=== PATIENT | male | born 1995 | race Caucasian/White ===

== ENCOUNTER 2017-06-19 11:48 | Emergency (ER) | payer OTHER, MEDICAID ==
[~2017-06-19] VITALS: Ht 185.4 cm; Wt 84.0 kg
[2017-06-19 11:55] VITALS: BP 132/78; PULSE 71; RESP 18; TEMP 98.8; O2SAT 99
[2017-06-19 11:59] VITALS: BP 125/87; PULSE 77; RESP 18; TEMP 98.8; O2SAT 97
[2017-06-19] MEDS ORDERED: SODIUM CHLORIDE 0.9% FLUSH 10 ML FLUSH IVF PRN (12:15)
[2017-06-19 12:27] VITALS: RESP 18; O2SAT 97; O2SAT 99
[2017-06-19] MEDS ORDERED: IOHEXOL 350 MG/ML 10 ML VIAL (for RAD DIAG) IVCONTRAST ONE (13:01)
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
[2017-06-19] MEDS ORDERED: KETOROLAC TROMETHAMINE 30 MG/ML (IVP) VIAL IV PUSH ONE (13:30)
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
[2017-06-19 13:47] LABS: BILIRUBIN, URINE NEG (NEG); BLOOD, URINE NEG (NEG); GLUCOSE,URINE NEG (NEG); KETONE, URINE NEG (NEG); NITRITE,URINE NEG (NEG); PH, URINE 8.5 (5.0-8.5); SQUAMOUS EPITHELIAL CELL URINE <1 /hpf (0-5); URINE COLOR YELLOW (YELLW/STRAW); URINE LEUKOCYTE ESTERASE NEG (NEG)
[2017-06-19] MEDS ORDERED: NAPR500T2 PO (14:07)
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
== END 2017-06-19 14:47 | disposition home or self-care (01) ==
LOC: NEPD 11:48
DX: N45.1 Epididymitis (principal); M54.5 Low back pain
CPT/HCPCS: 72131; 74177; 76870; 81001; 93975; 96374; 99285; J1885; Q9967